=== PATIENT | male | born 1990 | race Caucasian/White ===

== ENCOUNTER 2024-06-21 20:16 | Emergency (ER) | payer OTHER, SELFPAY ==
[2024-06-21 20:18] VITALS: BP 141/84; PULSE 89; RESP 20; TEMP 36.6; O2SAT 97; BMI 30.8
--- NOTE | 2024-06-21 20:43 | XRR_ITS ---
PROCEDURE INFORMATION: Exam: XR Right Tibia and Fibula Exam date and time: 06/21/2024 9:11 PM Age: 34 years old Clinical indication: Pain; Lower leg; Right; Additional info: RT lower ext pain after twisting injury/fall TECHNIQUE: Imaging protocol: Radiologic exam of the right tibia and fibula. Views: 2 views. COMPARISON: No relevant prior studies available. FINDINGS: Bones/joints: Nondisplaced spiral fracture of the distal tibial diaphysis. Soft tissues: Soft tissue swelling around the fracture. XR/XR tibia fibula RT 2V [id number] IMPRESSION: Nondisplaced fracture of the distal tibia.
[2024-06-21] MEDS: ondansetron 4 MG Tablet PO (20:55)
[2024-06-21] MEDS: HYDROmorphone 0.5 MG/0.5 ML INJ 2 MG IM (20:55)
--- NOTE | 2024-06-21 20:56 | W.ED.EXTPRO ---
HPI - Extremity Problem General: Chief complaint: Extremity Injury, Lower Stated complaint: Rt Leg Injury Time Seen by Provider: 06/21/24 20:25 History of Present Illness: 34-year-old man who was cleaning out brush, and fell when entangled in some rickey. He heard a snap to his right leg. He cannot bear weight. He does not have much pain if not bearing weight. Pain is to the lateral mid leg mostly. He has some swelling. He still has sensation. No prior leg injury. Related Data Previous Rx's ?Medication ?Instructions ?Recorded oxycodone-acetaminophen 7.5 mg-325 1 tab PO Q6H PRN pain #10 tabs 06/21/24 mg tablet (Percocet) Allergies Allergy/AdvReac Type Severity Reaction Status Date / Time erythromycin base Allergy Unknown Verified 06/21/24 20:50 Physical Exam Const: COMMON NORMALS: no acute distress GENERAL APPEARANCE: cooperative; not ill appearing and not frail appearing Eye: COMMON NORMALS: Equal, round and reactive pupils present and EOMs intact bilaterally PUPIL: Yes Equal, round and reactive pupils present Neck/C-Spine: GENERAL: Yes trachea midline Chest: CHEST: Yes Symmetrical chest wall rise Resp: COMMON NORMALS: normal respiratory effort, No retractions, No use of accessory muscles and clear to auscultation bilaterally AUSCULTATION: clear to auscultation bilaterally Cardio: COMMON NORMALS: regular rate and regular rhythm RATE: regular rate RHYTHM: regular rhythm Extremity: NARRATIVE EXTREMITY EXAM: Exam of the right lower extremity reveals tenderness over the mid fibula, mid tibia. There is swelling with minimal deformity at the mid leg. No ankle tenderness. No knee tenderness or effusion. Pulses and sensation are normal distally. Neuro: JACQUES COMA SCALE: document GCS findings [place] coma scale eye opening: Spontaneous Jacques coma scale verbal response: Orientated Jacques coma scale motor response: Obey commands Jacques coma scale total score: 15 SENSORY EXAM: Yes extremities (intact) Psych: COMMON NORMALS: speech normal SPEECH: Yes normal speech Course Vital Signs: Vital signs: Vital Signs Temperature 97.8 F 06/21/24 20:18 Pulse Rate 74 06/21/24 22:27 Respiratory Rate 16 06/21/24 22:27 Blood Pressure 144/100 06/21/24 22:27 Pulse Oximetry 100 06/21/24 22:27 Oxygen Delivery Me thod Room Air 06/21/24 22:27 MDM - Extremity (Nontraumatic) Medical Decision Making 34-year-old male patient with a right leg injury. X-ray shows a spiral distal tibia fracture, that does not cross the ankle joint line with no fibular fracture. Minimal posterior displacement. Spoke with foot and ankle surgery. Acute treatment will be long-leg posterior splint with stirrup, crutches, no weightbearing. Elevation, ice, pain medication. Follow-up with orthopedics as an outpatient. Return for any worsening symptoms despite treatment. Lab Data Radiology Impressions Tibia/Fibula X-Ray 06/21/24 20:43 IMPRESSION: Nondisplaced fracture of the distal tibia. All radiology interpretation(s) finalized by discharge Discharge Plan Discharge Patient Disposition: Home Clinical Impression: Closed tibia fracture Qualifiers: Encounter type: initial encounter Tibia location: shaft Fracture morphology: spiral Fracture alignment: displaced Laterality: right Qualified Code(s): S82.241A - Displaced spiral fracture of shaft of right tibia, initial encounter for closed fracture Condition: Stable Prescriptions: New oxycodone-acetaminophen [Percocet] 7.5-325 mg tablet 1 tab PO Q6H PRN (Reason: pain) Qty: 10 0RF Discharge Orders: Discharge ED (Routine); Ordered 06/21/24 Ordered By: Luis Fernando Abarca Referrals: Viviana Carvalho MD [Physician] - 1-3 days Viera,JACEK Real [Primary Care Provider] - Patient Instructions: Leg Fracture (ED), Opioid Safety, Pain Management Activity Restrictions/Additional Instructions: Elevate and ice consistently, especially for the next 48 hours. Stay in splint until seen by orthopedics. Call the orthopedic clinic in the morning for a follow-up appointment. Let them know you were seen here, and have a tibia fracture. Return for any problems, including and especially worsening and worsening pain despite treatment with ice elevation and pain medication. Print Language: Lithuanian Coding Level of Care Code ED Technical Implementation Lead for aKtt Bragg
[2024-06-21 20:58] VITALS: BP 153/102; PULSE 77; RESP 18; O2SAT 98
[2024-06-21 22:23] VITALS: RESP 81; O2SAT 100
[2024-06-21] MEDS: fentaNYL 50 mcg/mL INJ 2mL 150 MCG IVP (22:23)
[2024-06-21] MEDS: ondansetron 2 mg/ML SDV 2 mL 4 MG IVP (22:24)
[2024-06-21 22:27] VITALS: BP 144/100; PULSE 74; RESP 16; O2SAT 100
[2024-06-21] MEDS: ketorolac 30 mg/mL INJ IVP (23:48)
[2024-06-21 23:49] VITALS: BP 124/70; PULSE 71; RESP 16; O2SAT 99
[2024-06-22 00:33] VITALS: BP 127/70; PULSE 68; RESP 16; O2SAT 98
--- NOTE | 2024-06-22 16:26 | DCPLANNER ---
messaged ortho for er f/u
== END 2024-06-22 00:15 | disposition home or self-care (01) ==
PROVIDERS: Emergency Provider Emergency Medicine; PCP Nurse Practitioner Family
DX: S82.241A Displaced spiral fracture of shaft of right tibia, initial encounter for closed fracture (principal); W19.XXXA Unspecified fall, initial encounter
CPT/HCPCS: 29515; 73590; 96372; 96374; 96375; 99284; J1171; J1885; J2405; J3010; Q0162

== ENCOUNTER → 2024-06-22 10:08 | Outpatient (BNVA) | payer OTHER, SELFPAY | PROVIDERS: PCP Nurse Practitioner Family; Visit Provider Specialist | DX: S82.241A Displaced spiral fracture of shaft of right tibia, initial encounter for closed fracture (principal); X58.XXXA Exposure to other specified factors, initial encounter | CPT/HCPCS: 73590 ==

== ENCOUNTER 2024-06-22 11:50 | Outpatient (CLI) | payer OTHER, SELFPAY ==
--- NOTE | 2024-06-22 12:00 | CT_ITS ---
WS: [id number] CT RIGHT LOWER EXTREMITY, NONCONTRAST HISTORY: fracture Technique: All CT scans at [facility] use at least one of these dose optimization techniques: automated exposure control; mA and/or kV adjustment per patient size (includes targeted exams where dose is matched to clinical indication); or iterative reconstruction. DLP: 506.83 mGy.cm COMPARISON: 06/22/2024 radiograph Spiral, minimally displaced fracture extends over a length of 15.6 cm beginning in the mid tibial diaphysis to the distal tibia with sparing of the plafond. Fracture terminates several centimeters above the articular surface of the tibia. Comminuted segmental spiral fracture. There is elevation of the posterior periosteum. Mild separation by 4 mm. Fibula is intact. Mild diffuse soft tissue edema. Proximal tibia and fibula are intact. No significant widening of the syndesmosis. CT/CT lower leg RT wo con* [id number] IMPRESSION: 1. Spiral, minimally displaced segmental fracture involving the mid to distal tibia with sparing of the articular surface. Fracture extends over a length of 15.6 cm. 2. Fracture separation by 4 mm.
== END 2024-06-22 11:51 | disposition home or self-care (01) ==
LOC: RAD 11:54
PROVIDERS: PCP Nurse Practitioner Family; Visit Provider Specialist
DX: S82.241A Displaced spiral fracture of shaft of right tibia, initial encounter for closed fracture (principal); X58.XXXA Exposure to other specified factors, initial encounter
CPT/HCPCS: 73700

== ENCOUNTER 2024-06-24 10:56 | Day surgery (SDC) | payer OTHER, SELFPAY ==
--- NOTE | 2024-06-23 12:18 | ANES.PROC ---
Anesthesia Procedures Procedure/Date: 06/23/24
[2024-06-24] VITALS (15 sets, daily range): BP systolic 129–154; BP diastolic 72–108; PULSE 70–89; RESP 16–18; TEMP 36.7–37; O2SAT 90–100; BMI 30.8
[2024-06-24] MEDS: sodium chloride 0.9% 1,000 ML 30 ML IV (11:26)
[2024-06-24] MEDS: acetaminophen 1,000 MG/100 ML PIGGYBACK 400 MG IV (11:40)
[2024-06-24] MEDS: gabapentin 300 mg Capsule PO (11:41)
[2024-06-24] MEDS: CELEcoxib 200 mg Capsule 400 MG PO (11:41)
--- NOTE | 2024-06-24 11:56 | ANES.PREANE2 ---
Pre-Anesthetic Assessment Height/Weight: Height 1.78 m Weight 97.522 kg Temp Pulse Resp BP Pulse Ox O2 Del Method 98.0 F 88 17 148/94 98 Room Air 06/24/24 11:16 06/24/24 11:16 06/24/24 11:16 06/24/24 11:16 06/24/24 11:16 06/24/24 11:16 Operation Date: 06/24/24 12:45 Proposed Procedures p ORIF INTRAMEDULLARY NAIL OF RIGHT TIBIAL FRACTURE(Right) - Viviana Carvalho MD Familial anesthetic complications: none Was Beta Sonu taken within 24 hours: N/A Was Clonidine taken within 24 hours: N/A Last intake: Intake Last Liquid Date 06/23/24 Last Liquid Time 00:00 Last Solid Date 06/23/24 Last Solid Time 00:00 Social Tobacco (chews) Exam alert, oriented x 3, clear to auscultation bilaterally and regular rate & rhythm Airway Submandibular: within normal limits Cervical ROM: within normal limits Mallampati: Class II Dentition: full Anesthetic Plan ASA status: 1 Anesthesia: General and Regional (specify below) (Discussed possible pop blk for postop pain) Medications/Allergies Home Medications ?Medication ?Instructions ?Recorded ?Confirmed ?Last Taken ?Type oxycodone-acetaminophen 7.5 mg-325 1 tab PO Q6H PRN pain #10 tabs 06/21/24 06/24/24 06/24/24 Rx mg tablet (Percocet) 0900 ondansetron HCl 4 mg tablet 4 mg PO Q6H PRN Pain 06/23/24 06/24/24 06/24/24 History Allergies Allergy/AdvReac Type Severity Reaction Status Date / Time erythromycin base Allergy Unknown Verified 06/22/24 10:07 Current Medications Generic Name Dose Route Start Last Admin Trade Name Freq PRN Reason Stop Dose Admin Sodium Chloride 1,000 mls @ 30 mls/hr 06/24/24 11:15 06/24/24 11:26 Sodium Chloride 0.9% IV 06/25/24 11:14 30 mls/hr .Q24H PAPO Administration PFSH Anesthesia Social History Smoking and tobacco/nicotine status: unknown if used tobacco/nicotine Data Anesthesia Cardiac Studies: No Data to Display
--- NOTE | 2024-06-24 12:41 | P.HPUD_ITS ---
Surgery/Procedure H&P Update DATE OF PROCEDURE: June 24, 2024 DATE H&P PERFORMED: 06/22/24 H&P UPDATE INFORMATION: I have reviewed H&P completed within last 30 days, I have examined patient prior to procedure, No changes to prior documentation, H&P is in [facility] EMR on date indicated and Risks and benefits of the procedure reviewed PREOP DIAGNOSIS: Displaced right tibia fracture PLANNED PROCEDURE: Operation Date: 06/24/24 12:45 Proposed Procedures p ORIF INTRAMEDULLARY NAIL OF RIGHT TIBIAL FRACTURE(Right) - Viviana Carvalho MD Related Problem List Diagnoses (1) Fracture of tibial shaft, right, closed: Qualifiers: Encounter type: initial encounter Fracture morphology: comminuted Fracture alignment: displaced Qualified Code(s): S82.251A - Displaced comminuted fracture of shaft of right tibia, initial encounter for closed fracture
[2024-06-24] MEDS: scopolamine 1 mg PATCH 1 PATCH TRANSDERMA (12:56)
[2024-06-24] MEDS: ceFAZolin 2,000 mg SDV 2000 MG IVP (13:03)
--- NOTE | 2024-06-24 13:44 | ANES.PROC ---
Anesthesia Procedures Procedure/Date: 06/24/24 Nerve Block ^: Nerve Block 1: Main Anesthesia: general anesthesia Time Out Performed: Yes Consent: requested by attending/covering physician and patient agrees to proceed Nerve block location: popliteal (right) Anesthesia monitors applied: pulse oximetry, EKG, BP cuff and oxygen Nerve block position: supine Anesthetic Used: ropivicaine 0.5% Amount of anesthesia used (mL): 30 Ultrasound used to: recognize landmarks Nerve Stimulator Used?: No Interscalene/Femoral BLK: 4 stimuplex 21 g needle used for position and inplane approach Injection: neg aspiration of heme Patient Tolerated Procedure: well Complications: none
[2024-06-24] MEDS: ceFAZolin 1,000 mg SDV 1000 MG IRRIGATION (14:00)
[2024-06-24] MEDS: meperidine 50 mg/mL INJ 12.5 MG IVP (16:35)
[2024-06-24] MEDS: ketorolac 30 mg/mL INJ (16:47)
[2024-06-24] MEDS: fentaNYL 50 mcg/mL INJ 2mL IVP (16:47)
--- NOTE | 2024-06-24 17:01 | ANE.PACU2 ---
Inpatient post-anesthesia follow up: Airway intact: Yes Vital signs: Temperature 98.2 F Pulse Rate 80 Respiratory Rate 17 Blood Pressure 130/80 Pulse Oximetry 97 Oxygen Delivery Me thod Room Air Oxygen Flow Rate 6 Fraction of Inspir ed Oxygen Hydration adequate: Yes Nausea and vomiting: No Pain level: 3 Mental status: Baseline Additional Comments: Good pain coverage below knee, c/o knee pain
[2024-06-24] MEDS: oxyCODONE-APAP 5-325 mg Tablet 1 TAB PO (17:55)
--- NOTE | 2024-06-24 18:50 | P.OP_ITS ---
Operative Report Date of procedure: June 24, 2024 Pre-op diagnosis: Right comminuted distal tibial shaft fracture Post-op diagnosis: Right comminuted distal tibial shaft fracture Post-op findings: Comminuted distal tibia fracture with butterfly fragment and comminution Procedure done: Open reduction internal fixation right distal tibia fracture utilizing a Arely tibial nail system Implants: Arely T2 alpha tibial nail size 11 mm x 330 mm with 2 proximal and 2 distal locking screws and an 11.5 mm +20 end cap Specimens removed/disposition: None Pathology: None Surgeon: Viviana Carvalho MD [facility] Anesthesia: General (Per LMA, ASA 1 with preoperative popliteal block) Estimated blood loss (mL): 35 Tourniquet time (min): 0 (Not utilized) IV fluids (mL): 1,000 Urine output (mL): 0 (No Winkler) Complications: None Findings: Comminuted distal tibia fracture with butterfly fragment Brief History: This 34-year-old gentleman presented to my office after being seen in the emergency department for a spiral fracture of the right distal tibia without fibular fracture. The patient twisted his leg while clearing brush and heard a pop. Date of injury was June 21, 2024. The patient was seen in the office the following day, and he was scheduled for urgent operative intervention. I explained to him preoperatively that we would fix the fracture with an intramedullary nail. Risks and complications of surgery were discussed with him. Consents were signed in the office and questions were answered. Further questions were answered in the preoperative holding area. The patient's leg was marked by both the patient and myself. Procedure: Patient was seen in the preoperative holding area where the operative sites were marked. Patient was brought to the operating theater. After undergoing adequate general anesthesia with intubation, ASA 1, the patient was transferred to the operating room table, positioned on the table and fluoroscopic guidance obtained throughout the surgical procedure. Prior to the commencement of the surgical procedure, a surgical pause was performed. At the time of the surgical pause, we confirmed the site and side of surgery as well as preoperative surgical markings and appropriate and timely administration of IV antibiotics, Ancef 2 g. Availability of equipment was also confirmed. Fluoroscopy was used throughout the surgical procedure. The patient's right lower extremity was draped free. We placed a tourniquet high on the left lower extremity, but this was not elevated. Attention was directed to the distal tibia fracture with intent to use intramedullary nailing. An incision was made along the medial patellar tendon. Dissection continued through skin and soft tissues using a scalpel hemostasis was obtained using electrocautery. Combination of a freer and guidewire were used to enter the proximal tibia in appropriate position for placement of the tibial nail. The proximal tibia was palpated, and guidewire was visualized on fluoroscopy for an appropriate entry point. The guidewire was placed in appropriate position, and this position was confirmed in AP and lateral planes utilizing fluoroscopy. Proximal reaming was accomplished. Initial guidewire was removed, and we then passed a ball-tipped guidewire through the fracture to the ankle. Care was taken to assure that this was most distal in the ankle as possible secondary to the anatomy of the fracture. The measurement was 340 mm. As the tibial rods came in 330 and 340 5 mm lengths, we chose with 330 with plans made to place a tibial Approximately. Sequential reaming was then accomplished with plans to ream 2 mm above the chosen size of nail. We reamed to a size 13 to allow for placement of the size 11 mm tibial nail. With reaming at 13 mm, we had excellent diaphyseal chatter. The fracture was nicely reduced. The intact fibula served as the splint during the nailing process. We were able to pass the tibial nail without difficulty. Once the tibial nail was as distal as possible, attention was directed to the locking screws. 2 screws were placed proximally under fluoroscopic guidance to lock the nail. The 2 distal screws were placed with perfect [place] technique. The most distal screw hole of the nail was utilized as well as 1 proximal to this. The distal screw was plac ed medial to lateral, and the next screw hole was utilized which was an anterior posterior direction. Care was taken to avoid injury to the distal articular surface. Fluoroscopy was then utilized both proximally and distally to ensure the fracture was well reduced, screws were in appropriate position and of appropriate length, and overall alignment was good. The proximal aspect of the abbie was evaluated and a size 11.5 x +20 mm end cap was placed. Following this, preparation was made for closure. The wound was copiously irrigated. The fascial tissues were closed including the patellar tendon. This was accomplished with 0 Vicryl in an interrupted fashion. Subcutaneous tissues were closed with 2-0 Monocryl, and the skin was closed with skin christo. This was then covered with OpSite. Closure of wounds included the 3 stab wounds for the placement of locking screws as well as the more proximal incision as noted. All were coated with Dermabond and subsequently OpSite was placed. The leg was then wrapped with sterile soft roll and an Robert wrap and placed in a cam walker boot. There were no specimens. The patient was returned to PACU and subsequently outpatient for discharge to home. He will follow-up as scheduled. There were no specimens. Related Problem List Diagnoses (1) Fracture of tibial shaft, right, closed:
== END 2024-06-24 18:50 | disposition home or self-care (01) ==
PROVIDERS: PCP Nurse Practitioner Family; Visit Provider Specialist
PROC: (CPT 27759; 2024-06-24 12:45)
DX: S82.241A Displaced spiral fracture of shaft of right tibia, initial encounter for closed fracture (principal); X50.1XXA Overexertion from prolonged static or awkward postures, initial encounter
CPT/HCPCS: 27759; 73590; 76000; C1713; J0131; J0690; J1100; J1885; J2175; J2250; J2405; J2704; J2795; J3010; J7030; J9999

== ENCOUNTER → 2024-06-26 10:43 | Outpatient (BNVA) | payer OTHER, SELFPAY | PROVIDERS: PCP Nurse Practitioner Family; Visit Provider Specialist | DX: S82.251D Displaced comminuted fracture of shaft of right tibia, subsequent encounter for closed fracture with routine healing (principal); X58.XXXD Exposure to other specified factors, subsequent encounter | CPT/HCPCS: 73590 ==

== ENCOUNTER → 2024-07-01 09:11 | Outpatient (BNVA) | payer OTHER, SELFPAY | PROVIDERS: PCP Nurse Practitioner Family; Visit Provider Specialist | DX: S82.241D Displaced spiral fracture of shaft of right tibia, subsequent encounter for closed fracture with routine healing (principal); S82.251D Displaced comminuted fracture of shaft of right tibia, subsequent encounter for closed fracture with routine healing; X58.XXXD Exposure to other specified factors, subsequent encounter | CPT/HCPCS: 73590 ==

== ENCOUNTER → 2024-07-13 10:55 | Outpatient (BNVA) | payer OTHER, SELFPAY | PROVIDERS: PCP Nurse Practitioner Family; Visit Provider Nurse Practitioner | DX: Z98.890 Other specified postprocedural states (principal) | CPT/HCPCS: 73590 ==

== ENCOUNTER → 2024-08-21 08:43 | Outpatient (BNVA) | payer OTHER, SELFPAY | PROVIDERS: PCP Nurse Practitioner Family; Visit Provider Specialist | DX: Z98.890 Other specified postprocedural states (principal) | CPT/HCPCS: 73590 ==

== ENCOUNTER → 2024-12-21 09:58 | Outpatient (BNVA) | payer OTHER, SELFPAY | PROVIDERS: PCP Nurse Practitioner Family; Visit Provider Specialist | DX: T84.116A Breakdown (mechanical) of internal fixation device of bone of right lower leg, initial encounter (principal); Z98.890 Other specified postprocedural states | CPT/HCPCS: 73590 ==

== ENCOUNTER 2024-12-31 09:18 | Day surgery (SDC) | payer OTHER, SELFPAY ==
[2024-12-31] VITALS (12 sets, daily range): BP systolic 126–161; BP diastolic 89–105; PULSE 65–83; RESP 14–19; TEMP 36.1–36.3; O2SAT 97–100; BMI 30.1
[2024-12-31] MEDS: acetaminophen 1,000 MG/100 ML PIGGYBACK 400 MG IV (10:02)
--- NOTE | 2024-12-31 10:53 | ANES.PREANE2 ---
Pre-Anesthetic Assessment Height/Weight: Height 5 ft 10 in Weight 210 lb Temp Pulse Resp BP Pulse Ox O2 Del Method 97.3 F L 80 18 161/97 99 Room Air 12/31/24 09:47 12/31/24 09:47 12/31/24 09:47 12/31/24 09:47 12/31/24 09:47 12/31/24 09:47 Preop Diagnosis: Pain from prosthetic hardware Operation Date: 12/31/24 10:50 Proposed Procedures p RIGHT Proximal Tibia Screw Removal(Right) - Viviana Carvalho MD Was Beta Sonu taken within 24 hours: N/A Was Clonidine taken within 24 hours: N/A Last intake: Intake Last Liquid Date 12/30/24 Last Liquid Time 23:59 Last Solid Date 12/30/24 Last Solid Time 19:00 Social Tobacco and No alcohol Chews tobacco Exam alert, oriented x 3, clear to auscultation bilaterally and regular rate & rhythm Airway Submandibular: within normal limits Cervical ROM: within normal limits Mallampati: Class II Dentition: full Comments: Comments: Patient has a full bottom lip that appears to have chew in it but when asked he states that he has not chewed all day and has no active chew Anesthetic Plan ASA status: 2 Anesthesia: General Other: No prior issues with anesthesia NPO since yesterday evening Chews tobacco Denies any cardiac issues METs greater than 4 Plan for general anesthesia Medications/Allergies Home Medications ?Medication ?Instructions ?Recorded ?Confirmed ?Last Taken ?Type No Known Home Medications 12/30/24 12/30/24 Unknown History Allergies Allergy/AdvReac Type Severity Reaction Status Date / Time erythromycin base Allergy ALGY-Rash Verified 12/31/24 09:44 Current Medications Generic Name Dose Route Start Last Admin Trade Name Freq PRN Reason Stop Dose Admin Sodium Chloride 1,000 mls @ 30 mls/hr 12/31/24 09:45 12/31/24 10:03 Sodium Chloride 0.9% IV 01/01/25 09:44 30 mls/hr .Q24H PAPO Administration PFSH Anesthesia Surgical History Post-operative state Social History Smoking and tobacco/nicotine status: never used tobacco/nicotine
[2024-12-31] MEDS: ceFAZolin 2,000 mg SDV 2000 MG IVP (11:00)
--- NOTE | 2024-12-31 11:16 | P.HPUD_ITS ---
Surgery/Procedure H&P Update DATE OF PROCEDURE: December 31, 2024 DATE H&P PERFORMED: 12/21/24 H&P UPDATE INFORMATION: I have reviewed H&P completed within last 30 days, I have examined patient prior to procedure, No changes to prior documentation, H&P is in [facility] EMR on date indicated and Risks and benefits of the procedure reviewed PREOP DIAGNOSIS: Pain from orthopedic hardware PLANNED PROCEDURE: Operation Date: 12/31/24 10:50 Proposed Procedures p RIGHT Proximal Tibia Screw Removal(Right) - Viviana Carvalho MD Related Problem List Diagnoses 1. Closed displaced comminuted fracture of shaft of right tibia, sequela: Qualifiers: Encounter type: sequela Fracture morphology: comminuted Fracture alignment: displaced Qualified Code(s): S82.251S - Displaced comminuted fracture of shaft of right tibia, sequela 2. Painful orthopaedic hardware:
[2024-12-31] MEDS: BUPivacaine-epi 0.5% 10 ML INJ XX (12:05)
--- NOTE | 2024-12-31 12:31 | ANE.PACU2 ---
Inpatient post-anesthesia follow up: Airway intact: Yes Vital signs: Temperature 97.3 F Pulse Rate 80 Respiratory Rate 18 Blood Pressure 161/97 Pulse Oximetry 99 Oxygen Delivery Me thod Room Air Oxygen Flow Rate 10 Fraction of Inspir ed Oxygen Hydration adequate: Yes Nausea and vomiting: No Pain level: 1 Mental status: Baseline
--- NOTE | 2024-12-31 12:44 | PM.OP ---
Operative Report Date of procedure: December 31, 2024 Pre-op diagnosis: Painful orthopedic hardware right proximal tibia x 2, medial and anterior screws Post-op diagnosis: Painful orthopedic hardware right proximal tibia x 2, medial and anterior screws Post-op findings: Palpable prominence particularly of the anterior medial screw with intact hardware Procedure done: Removal orthopedic hardware, 2 screws with 2 separate incisions from proximal tibial nail Implants: 2 screws removed Specimens removed/disposition: Screws sent with patient x 2 Pathology: None Surgeon: Viviana Carvalho MD Astrophysics Teacher: Jeanne Self, nurse practitioner, who services were required for retraction and positioning of the leg as well as closure. Anesthesia: General (Per LMA, ASA 2) Estimated blood loss (mL): 10 Tourniquet time (min): 0 (Not utilized) IV fluids (mL): 900 Urine output (mL): 0 (No Winkler) Complications: None Findings: Prominent hardware particularly anteriorly. No signs of infection. Condition: stable Disposition: PACU (Then return to same-day surgery for discharge to home) Brief History: This 34-year-old gentleman underwent open reduction internal fixation of a distal comminuted tibia fracture with butterfly fragment on June 24, 2024. He has done well, however, his anterior proximal screw has been painful. He also has a chronic bruising feeling over the medial proximal tibial screw. After discussion in the office, plans were made for screw removal and further discussion in the preoperative holding area regarded taking both proximal screws out. Patient was consented for this procedure. Questions were answered the morning of surgery as well as in the office. Procedure: Patient was seen in the preoperative holding area, and the operative sites were marked. The patient was brought to the operating theater and after undergoing general anesthesia per LMA, ASA 2, the patient's right lower extremity was prepped with the leg draped free. Fluoroscopic guidance was used throughout the surgical procedure. Prior to commencement of the surgical procedure, a surgical pause was performed. At the time of the surgical pause, we confirmed the site and side of surgery as well as preoperative surgical markings and appropriate and timely administration of IV antibiotic, Ancef 2 g. Availability of equipment was also confirmed. Fluoroscopy was utilized throughout the surgical procedure. The patient's right lower extremity was draped free. A tourniquet was placed high on the left lower extremity, but this was not elevated. Attention was directed to the proximal tibia. The 2 screws which were to be removed hip were palpated preoperatively and marked. Attention was directed initially to the anterior screw, and an incision was made directly over this through the patient's previous incision. We were able to remove this screw uneventfully. Attention was then directed to the medial incision which had been made for removal of the medial screw, and this incision had to be extended slightly to be able to isolate the screw and remove it. With some difficulty, soft tissues were elevated, and the screw was removed. Both screws were noted to be intact following removal. The wounds were copiously irrigated. Attention was directed to closure. Each wound was injected with local anesthetic. Subcutaneous tissues were closed with 2-0 Monocryl and the skin was closed with 3-0 Monocryl. This was followed by Dermabond, Steri-Strips, and OpSite. The leg was then wrapped with sterile soft roll and an Robert wrap. The patient was returned to the recovery room in a satisfactory condition will be discharged to home to follow-up as scheduled. There were no complications. Screws were sent with the patient. Related Problem List Diagnoses 1. Closed displaced comminuted fracture of shaft of right tibia, sequela: 2. Painful orthopaedic hardware:
[2024-12-31] MEDS: HYDROcodone-acetaminophen 5-325 mg Tablet 1 TAB PO (13:15)
--- NOTE | 2024-12-31 14:36 | XR_ITS ---
WS: [id number] Right knee, C-arm fluoroscopy views, 12/31/2024 Clinical Data: OR PIC , SCREW REMOVAL Comparison: Right leg, 12/21/2024 Findings: Dr. Carvalho removed the proximal screws from the right tibia. XR/XR knee RT 1-2V [id number] Impression: Removal of orthopedic screws from proximal right tibia.
== END 2024-12-31 13:53 | disposition home or self-care (01) ==
PROVIDERS: PCP Nurse Practitioner Family; Visit Provider Specialist
PROC: (CPT 20680; principal; 2024-12-31 10:50)
DX: T84.84XA Pain due to internal orthopedic prosthetic devices, implants and grafts, initial encounter (principal); Y72.3 Surgical instruments, materials and otorhinolaryngological devices (including sutures) associated with adverse incidents; F17.220 Nicotine dependence, chewing tobacco, uncomplicated; Z79.891 Long term (current) use of opiate analgesic
CPT/HCPCS: 20680; 73560; 76000; J0131; J0690; J2250; J2405; J2704; J3010; J3490; J7030; J9999

== ENCOUNTER → 2025-01-25 09:06 | Outpatient (BNVA) | payer OTHER, SELFPAY | PROVIDERS: PCP Nurse Practitioner Family; Visit Provider Specialist | DX: Z98.890 Other specified postprocedural states (principal) | CPT/HCPCS: 73590 ==